=== PATIENT | male | born 1970 | race Caucasian/White ===

== ENCOUNTER 2018-06-23 12:05 | Emergency (ER) | payer BC, OTHER ==
[2018-06-23 12:56] VITALS: BP 148/105
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
== END 2018-06-23 13:12 | disposition home or self-care (01) ==
LOC: UCEAST 12:05
DX: H01.004 Unspecified blepharitis left upper eyelid (principal); Z88.0 Allergy status to penicillin; Z91.048 Other nonmedicinal substance allergy status
CPT/HCPCS: 99212; G0463